=== PATIENT | male | born 1955 | race Caucasian/White ===

== ENCOUNTER → 2020-09-05 | Outpatient (CLI) | payer MEDICARE ==
--- NOTE | 2020-09-05 10:40 | XR ---
EXAMINATION TYPE: XR knee limited LT DATE OF EXAM: 09/05/2020 COMPARISON: None HISTORY: M 25.562 TECHNIQUE: 2 view left knee FINDINGS: There is mild narrowing of the medial lateral compartment joint spaces. Posterior patellar spurring is present superiorly and inferiorly. No acute fractures or dislocations are evident. No joint effusion is evident. IMPRESSION: 1. 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
== END | disposition home or self-care (01) ==
LOC: RADXRMAIN 10:22
PROVIDERS: ATTEND Nurse Practitioner Gerontology
DX: M17.12 Unilateral primary osteoarthritis, left knee (principal)